=== PATIENT | male | born 1995 | race Caucasian/White ===

== ENCOUNTER 2017-03-04 12:02 | Emergency (ER) | payer OTHER ==
[~2017-03-04] VITALS: Ht 175.3 cm; Wt 83.9 kg
[2017-03-04] MEDS ORDERED: PROVENTIL HFA6.7 G1 INH (14:01)
[2017-03-04] MEDS ORDERED: PREDNISONE 20 M20 MG PO (14:01)
[2017-03-04] MEDS ORDERED: TESSALON PERLE100 MG PO (14:01)
== END 2017-03-04 14:43 | disposition home or self-care (01) ==
LOC: ER 12:02
DX: J06.9 Acute upper respiratory infection, unspecified (principal); B34.9 Viral infection, unspecified; F17.210 Nicotine dependence, cigarettes, uncomplicated